=== PATIENT | female | born 1985 | race Two or more races ===

== ENCOUNTER 2019-10-07 11:25 | Emergency (ER) | payer SELFPAY ==
[~2019-10-07] VITALS: Ht 157.5 cm; Wt 68.0 kg
--- NOTE | 2019-10-07 11:45 | NUR ---
PT IS IN ROOM #2B. DR CROOKS EVALUATED THE PT.
[2019-10-07] MEDS ORDERED: KETOROLAC TROMETHAMINE 60 MG INJ IM ONE ×2 (12:00→12:01)
[2019-10-07 12:46] LABS: *URINE HCG, QUAL NEGATIVE (NEGATIVE)
--- NOTE | 2019-10-07 13:28 | NUR ---
PT WAS D/C'd TO HOME. D/C INSTRUCTION GIVEN TO THE PT. NO S/S OF ACUTE DISTRESS AT THE TIME OF DISCHARGE
== END 2019-10-07 13:33 | disposition other institution (70) ==
LOC: ER 11:29
DX: S13.4XXA Sprain of ligaments of cervical spine, initial encounter (principal); S09.90XA Unspecified injury of head, initial encounter; M54.9 Dorsalgia, unspecified; V29.3XXA Motorcycle rider (driver) (passenger) injured in unspecified nontraffic accident, initial encounter; Y93.89 Activity, other specified; Y92.89 Other specified places as the place of occurrence of the external cause; Y99.8 Other external cause status
CPT/HCPCS: 70450; 72125; 84703; 96372; 99284; J1885; A4663